=== PATIENT | male | born 1975 | race Caucasian/White ===

== ENCOUNTER 2016-05-15 17:43 | Emergency (ER) | payer OTHER ==
[~2016-05-15] VITALS: Ht 177.8 cm; Wt 102.1 kg
[2016-05-15 18:10] VITALS: BP 119/72
[2016-05-15] MEDS ORDERED: AUGMENTIN 875-1 EACH PO (18:18)
--- NOTE | 2016-05-15 18:19 | ED THROAT/DENTAL COMPLAINT ---
History of Present Illness General Chief Complaint: Sore Throat, Dental Pain Stated Complaint: ?STREP THROAT PER PT Source: patient, old records Exam Limitations: no limitations Vital Signs & Intake/Output Vital Signs & Intake/Output Vital Signs Date Time Temp Pulse Resp B/P Pulse O2 O2 Flow FiO2 Ox Delivery Rate 05/15 1810 99.0 86 20 119/72 98 Room Air Room Air Allergies Coded Allergies: No Known Allergies (05/15/16) Reconcile Medications Amoxicillin/Potassium Clav (Augmentin 875-125 Tablet) 875 MG-125 MG TABLET 1 TAB PO BID PHARYNGITIS Triage Note: PT TO ED WITH C/O SORE THROAT AND WHITE PATCHES, "BOTH KIDS AND MY HAVE STREP THROAT". Triage Nurses Notes Reviewed? yes Onset: Abrupt Duration: day(s): (2), constant Timing: recent history Injury Environment: home Severity: mild Severity Numbers: 5 No Modifying Factors: none Associated Symptoms: DENIES HPI: 40-year-old male with no medical history presents emergency room complaining of a sore throat for the past 2 days. He reports multiple sick contacts are home currently on advise for strep throat. He denies rhinorrhea congestion fever chills difficult to breathing abdominal pain nausea vomiting. Patient has not taken anything for his symptoms were sought care until today. No recent dental work or no modifying factors or associated symptoms otherwise. Past History Travel History Traveled to [place] past 21 day No Medical History Any Pertinent Medical History? see below for history Neurological: NONE EENT: NONE Cardiovascular: hypertension Respiratory: NONE Gastrointestinal: NONE Hepatic: NONE Renal: NONE Musculoskeletal: NONE Psychiatric: NONE Endocrine: NONE Blood Disorders: NONE Cancer(s): NONE Surgical History Surgical History: none Psychosocial History What is your primary language Jordanian Tobacco Use: Quit >30 days ago ETOH Use: denies use Illicit Drug Use: denies illicit drug use Family History Hx Contributory? No Review of Systems Review of Systems Constitutional: Reports: see HPI. All Other Systems: Reviewed and Negative Comments Review of systems: See HPI, All other systems negative. Constitutional, no chills no fever, no malaise no weight loss HEENT: sore throat no congestion, no ear pain Cardiovascular: No chest pain , no palpitation Skin, no rashes, no change in skin Respiratory: No dyspnea no cough no sputum GI: No nausea no vomiting, no diarrhea : No dysuria Muscle skeletal: No joint pain, no back pain, no neck pain, Neurologic: No numbness no headache Psych: No stress Heme/endocrine: No bruising no bleeding Immunology: No lymphadenopathy Physical Exam Physical Exam General Appearance: well developed/nourished, no apparent distress, alert, awake Mouth/Throat: tonsillar exudate, tonsillar swelling Comments: Well-developed well-nourished patient in no apparent distress. Head/Face: Atraumatic, no maxillary/frontal sinus tenderness, no facial swelling Eyes: PERRL, EOMI, no conjunctival injection. No nystagmus Ear:External auditory canal and Tympanic membranes clear, no erythema, no FB. Nose: atraumatic.Normal inspection: No bleeding, no septal hematoma Throat: Moist mucous membranes.tonsillar exudates swelling no uvula displacement no stridor/drooling or assymetry. No swelling or edema. Neck: Supple, no lymphadenopathy, FROM Back: FROM, Nontender Cardiovascular: Regular rate and rhythms no murmurs rubs Respiratory: No respiratory distress. Patient speaking in full complete sentences. Breath sounds clear to auscultation bilaterally: NO W/R/R Extremities: full range of motion Neuro: Alert and oriented x3 Skin: Warm & dry;No appreciable rash on exposed skin Psych: Mood affect normal, normal memory normal judgment. Core Measures ACS in differential dx? No Severe Sepsis Present: No Septic Shock Present: No Progress Differential Diagnosis: epiglottitis, Ludwigs angina, odontogenic abscess, lesley- tonsillar abscess, strep pharyngitis Plan of Care: Patient does not want to wait for strep swab given multiple sick contacts at home with positive cases on antibiotics and physical exam we will treat with Augmentin I had an extensive conversation regarding need for close follow up with their primary care physician this week as well as return precautions. I answered all of their questions, they feel comfortable with the plan and follow- up care. He feels comfortable this plan I discussed the medications that they will receive with the patient. I gave them signs and symptoms that could indicate an adverse reaction. I have advised them to limit their activities until they can see how they respond to the medication. Departure Departure Time of Disposition: 1816 Disposition: HOME OR SELF CARE Condition: Stable Clinical Impression Primary Impression: Pharyngitis Additional Instructions: AUGMENTIN DIRECTED THIS WAS SENT TO [facility]. TYLENOL OR MTORIN EVERY 4-6 HOURS NEEDED. RETURN WITH ANY CONCERNS Departure Forms: Customer Survey General Discharge Information Prescriptions: Current Visit Scripts Amoxicillin/Potassium Clav (Augmentin 875-125 Tablet) 1 TAB PO BID #14 TAB
== END 2016-05-15 18:30 ==
LOC: ERH 17:43
DX: J02.9 Acute pharyngitis, unspecified (principal); Z87.891 Personal history of nicotine dependence